=== PATIENT | male | born 1985 | race Asian ===

== ENCOUNTER 2019-02-02 13:07 | Outpatient (CLI) | payer OTHER ==
[2019-02-02 13:49] VITALS: BP 112/56
--- NOTE | 2019-02-02 13:49 | SLEEP CARE CONSULTATION ---
Information from patient questionnaire entered by Daly Bond. I have reviewed and concur with the information entered by Daly Bond. This document represents the service I personally performed and the decisions made by me, Shreyas Joyce MD, [facility]. History of Present Illness Reason for Visit: New patient Duration of Symptoms: 8 years Usual bedtime: 2200 Time it takes to fall asleep: 6-8 hours Snores at night: Yes Observed to quit breathing while asleep: Yes Sleeps alone due to snoring: Yes Number of times waking at night: 3-4 Reasons for waking at night: reports: Bathroom Toss, Turn, or Twitch while sleeping: No Recalls having dreams: Yes Usually gets out of bed at: 0500 Feels refreshed in the morning: No Morning headache: No Sleepy or fatigued during the day: Yes Ever fallen asleep while driving: Yes Takes day naps: Yes Dreams during day naps: Yes Prior sleep studies: Yes Year and Where: 2011 [facility] Additional HPI information: I had the pleasure of seeing Mr. Lloyd today regarding obstructive sleep apnea- hypopnea. As you know, he is a 33 year old gentleman who was diagnosed with obstructive sleep apnea-hypopnea in [place] in 2011. He recalls the severity to be moderate. A CPAP was prescribed with a full face mask which he could not tolerate. He quit using it after a week. Subjective Initial [place] Sleepiness Scale score: 16 Past Medical History Past Medical History: reports: GERD, Other (obstructive sleep apnea) Social History The patient's occupation is active . Patient is and lives in [place]. Have you smoked in the past 12 months: No Alcohol use: Yes Alcohol amount and frequency: sometimes weekends Caffeine use: Yes Caffeine amount and frequency: 2 cups Family History Family history of sleep disordered breathing: Yes Family Hx Sleep Apnea: Mother: Snoring, Father: Snoring Allergies and Home Medications Allergy and home medication list: Prilosec Review of Systems Weight gain over past 5 years: 20 Weight loss over past 5 years: 10 Gastrointestinal: reports: heartburn Ear/Nose/Throat: reports: nasal congestion Physical Exam Vital signs obtained and entered by: Dr. Joyce Blood Pressure: 112/56 Heart Rate: 50 O2 Saturation: 98 Height: 5 ft 9 in Weight: 230 lb Body Mass Index: 34.0 BMI Classification: Obesity Class 1 Neck circumference: 16.5 HEENT: No craniofacial malformation Nostrils: patent to airflow Turbinates: normal Septum: deviated left Mouth and throat: narrow oropharynx Soft palate: long Hard palate: normal Uvula: normal Uvula visualization: 50% Mallampati Class II Tongue: normal in size Tonsils: small Chin and jaw: normal size and position Neck: normal w/o lymphadenopathy or thyromegaly Heart: regular rate and rhythm Lungs: clear bilaterally Abdomen: soft, non-tender Extremities: no edema or clubbing Neurologic: intact, no focal deficits Impression and Plan IMPRESSION: 1. Obstructive Sleep Apnea-Hypopnea Syndrome, as previously diagnosed, but untreated. The patient appears to be symptomatic for loud and irregular snoring, frequent awakenings during the night, unrefreshed sleep, cognitive impairment, and daytime hypersomnolence. Narrow oropharynx and obesity are common predisposing factors for obstructive sleep apnea-hypopnea syndrome. Pathophysiology of sleep-disordered breathing was discussed. I recommend proceeding to polysomnography to confirm the diagnosis and to assess severity. If he has significant sleep disordered breathing, a manual CPAP titration study will also be performed to find the optimal treatment pressure. I informed the patient of what the sleep studies involve and after some discussion, he agreed to proceed. Plan: 1. Schedule polysomnography + manual CPAP titration study and return in 1 to weeks after the study to discuss result and initiate therapy. 2. Avoid long distance driving or when feeling sleepy. 3. Avoid alcohol, sedative and muscle relaxant around bedtime. 4. Attempt to lose weight. I spent 100% of this 20 minute visit face to face with the patient with greater than 50% of this was spent time counseling the patient and coordination of care.
== END 2019-02-02 13:08 | disposition home or self-care (01) ==
LOC: SC 13:07
PROVIDERS: ATTEND Internal Medicine Pulmonary Disease
DX: G47.33 Obstructive sleep apnea (adult) (pediatric) (principal); E66.9 Obesity, unspecified; Z68.34 Body mass index [BMI] 34.0-34.9, adult
CPT/HCPCS: 99203; 99212

== ENCOUNTER 2019-04-02 19:36 | Outpatient (CLI) | payer OTHER | END 2019-04-02 19:37 | disposition home or self-care (01) | LOC: SC 19:36 | PROVIDERS: ATTEND Internal Medicine Pulmonary Disease | DX: G47.33 Obstructive sleep apnea (adult) (pediatric) (principal); G47.61 Periodic limb movement disorder | CPT/HCPCS: 95811 ==

== ENCOUNTER 2019-04-28 14:01 | Outpatient (CLI) | payer OTHER ==
--- NOTE | 2019-04-28 23:16 | SLEEP CARE CONSULTATION ---
Information from patient questionnaire entered by Tanesha Edouard. I have reviewed and concur with the information entered by Tanesha Edouard. This document represents the service I personally performed and the decisions made by me, Shreyas Joyce MD, [facility]. History of Present Illness Initial [place] Sleepiness Scale score: 16 Current [place] Sleepiness Scale score: 15 Additional HPI information: HPI: Mr. Lloyd returned for follow up of the sleep study he had on 04/02/2019. The polysomnography showed the following: The quality of the study is good. CPAP was initiated 161.0 minutes into the study and titrated up from 4 cmH2O and titrated up to CPAP at 15 cmH2O. DIAGNOSTIC: The patient had normal sleep efficiency. The sleep architecture was abnormal for sleep fragmentation and lack of REM sleep. Respiratory monitoring showed very severe obstructive sleep apnea-hypopnea (AHI = 68.1) associated with frequent arousals, oxyhemoglobin desaturation and mild hypoxia (leidy oxygen saturation of 84%). The respiratory events occurred mainly duri ng supine sleep. Snoring was loud in intensity. There was mild periodic limb movement of sleep contributing to the sleep fragmentation.. THERAPEUTIC: CPAP at 15 cmH2O appeared to be optimal (AHI of 0.9 per hour on the pressure). There was supine REM sleep on the pressure. Oxygen saturation was normal throughout the night. Lower CPAP settings allowed frequent residual respiratory events. The patient appeared to have tolerated positive airway pressure therapy fairly well using a Respironics DreamWisp nasal mask. The patients sleep efficiency was slightly reduced. The sleep architecture was normal. There was mild periodic limb movement of sleep contributing to the sleep fragmentation. Cardiac rhythm was normal sinus rhythm without significant arrhythmia. No abnormal behavior (parasomnia) observed during the night. The patient was informed of these findings. I explained to him the pathophysiology behind obstructive sleep apnea. We then spent quite a bit of time discussing different treatment options. For mild obstructive sleep apnea, surgery and oral appliance are alternatives to nasal CPAP therapy but in moderate or severe cases, nasal CPAP is the most effective and reliable treatment. Weight loss in an obese individual is strongly recommended. After some discussion, he opted to go with the nasal CPAP therapy. He actually tried and failed CPAP many years ago in [place]. Allergies and Home Medications Drug allergies reviewed: Yes Home medication list reviewed: Yes Review of Systems Review of systems same as previous: Yes Physical Exam Weight: 230 lb Impression and Plan IMPRESSION: 1. Obstructive Sleep Apnea-Hypopnea Syndrome, very severe, associated with mild hypoxemia and sleep fragmentation. Obviously this is the cause of the patients symptoms of unrefreshed sleep, and excessive daytime sleepiness. As mentioned above, the patient will be started on an autoCPAP set at 12 - 16 cmH2O. I anticipate good treatment compliance. PLAN: 1. Prescription made for an autoCPAP, heated humidifier, and related supplies. 2. Attempt to lose weight and avoid alcohol consumption near bedtime. 3. The patient is again cautioned about driving until his sleepiness completely resolves on the CPAP therapy. 4. Return in six weeks for follow up. I will assess his response and compliance at that time. I spent 100% of this visit face to face with the patient with greater than 50% of this was spent time counseling the patient and coordination of care.
== END 2019-04-28 14:02 | disposition home or self-care (01) ==
LOC: SC 14:01
PROVIDERS: ATTEND Internal Medicine Pulmonary Disease
DX: G47.33 Obstructive sleep apnea (adult) (pediatric) (principal)
CPT/HCPCS: 99212; 99213

== ENCOUNTER 2020-08-15 12:47 | Outpatient (CLI) | payer OTHER ==
--- NOTE | 2020-08-15 13:43 | SLEEP CARE CONSULTATION ---
Information from patient questionnaire entered by Oseas Mirza. I have reviewed and concur with the information entered by Oseas Mirza. This document represents the service I personally performed and the decisions made by me, Shreyas Joyce MD, [facility]. History of Present Illness Service Date and Time: 08/15/2020 1247 Previous diagnosis: Very Severe, Obstructive Sleep Apnea-Hypopnea Syndrome AHI: 68.1 Reason for follow up: annual (Last seen 03/2019) Equipment type: CPAP Equipment obtained from: [employer] Mask style: Nasal pillows Prior sleep studies: Yes Year and Where: 2018 [facility] and 2011 [facility] HPI additional information: HPI: Mr. Lloyd was diagnosed to have very severe obstructive sleep apnea- hypopnea syndrome and returns today for follow up of CPAP therapy. The patient purchased the device from [employer] and was fitted with a nasal mask. He uses the device nightly and all through the night. The compliance report shows that he uses the device 58 nights out of the past 180 nights, averaging 4.9 hours a night. He complains of no particular problem with the device such as soreness on the face, dry nose, epistaxis, nasal congestion or headache. He thinks that the pressure of 12 - 16 cmH2O is comfortable. On the CPAP therapy he notices improvement in his sleep quality, and that he wakes up feeling fresher in the morning and more awake/alert during the day. His notices no snore at all. [place] Sleepiness Scale score is 15. The average residual AHI is 5.2; and average time in large leak per day is 0.5 L/minute. The 90th percentile pressure is 15.4 cmH2O. CPAP Compliance Data - Data Reviewed with Patient Average duration of nightly device use: 4 h 55 min Compliance rate %: 24 Current pressure setting (cmH2O): 12-16 Average residual AHI: 5.2 Subjective Patient concerns: reports: mask discomfort Current pressure setting perceived as: comfortable Initial [place] Sleepiness Scale score: 16 (in 2019) Current [place] Sleepiness Scale score: 15 Allergies and Home Medications Drug allergies reviewed: Yes Home medication list reviewed: Yes Review of Systems Review of systems same as previous: Yes Physical Exam Height: 5 ft 9 in Weight: 225 lb Body Mass Index: 33.2 BMI Classification: Obese Impression and Plan IMPRESSION: 1. Obstructive Sleep Apnea-Hypopnea Syndrome, severe, with the patient not using his CPAP for several months last year because of his children sleeping with him. The current pressure appears effective and comfortable. Overall, he is very satisfied with treatment and plans to continue with it long- term. Because he tends to sleep facedown, I recommend trying the nasal pillows. PLAN: 1. Continue with autoCPAP set at 12 - 16 cm H2O. 2. Try to lose weight 3. Try nasal pillows, e.g. ResMed P30i and Respironics DreamWear nasal pillows. 4. Return in one year for follow up or earlier if there is any problem with the treatment. Counseling Topics: Weight control Visit Type: In Office Time Spent with Patient (minutes): 15 Provider Statement: I spent 100% of the Face to Face Visit with the patient with greater than 50% spent counseling the patient and coordination of care.
== END 2020-08-15 12:48 | disposition home or self-care (01) ==
LOC: SC 12:47
PROVIDERS: ATTEND Internal Medicine Pulmonary Disease
DX: G47.33 Obstructive sleep apnea (adult) (pediatric) (principal); E66.9 Obesity, unspecified; Z68.33 Body mass index [BMI] 33.0-33.9, adult
CPT/HCPCS: 99212